=== PATIENT | male | born 1995 | race Caucasian/White ===

== ENCOUNTER 2017-05-14 00:31 | Emergency (ER) | payer BC ==
[~2017-05-14] VITALS: Ht 170.2 cm; Wt 75.2 kg
[2017-05-14 00:33] VITALS: Ht 170.2 cm; Wt 75.2 kg
--- NOTE | 2017-05-14 01:53 | ERD ---
ER Documentation Chief Complaint Chief Complaint chest pain x 4 days HPI 22-year-old male presents emergency department for reproducing chest pain for 4 days. Stated that his pain radiates to his left arm. He also added that this chest pain and left arm pain started after he got a flu shot to his left upper extremity last Tuesday. He also added that his chest pain is much worse after eating. Also complains of sinus headache. Denies that this is the worst headache of his life, dizziness, blurry vision, neck pain, throat pain, difficulty swallowing, sweating, clammy skin, abdominal pain, nausea, vomiting, constipation, diarrhea, urinary symptoms, loss of bowel bladder control, changes in bowel bladder habits, trauma, injury, falls, recent exposure to any illness, recent long travel, difficulty breathing when lying flat, numbness or tingling sensation, fever, chills. No known drug allergies. Past medical history of asthma. No surgical history. Does not take any prescription medication at home. Social: Works at an office. Right-handed. Denies smoking, use of alcoholic beverages, use of illegal drugs. ROS All systems reviewed and are negative except as per history of present illness. Medications Home Meds Active Scripts Cyclobenzaprine Hcl* (Cyclobenzaprine Hcl*) 10 Mg Tablet, 10 MG PO Q12 Y for MUSCLE SPASMS, #20 TAB Prov:CRISMELCHOREVELINANII F 05/14/17 Famotidine* (Pepcid*) 20 Mg Tablet, 20 MG PO DAILY for 30 Days, TAB Prov:PASILABANEVELINAAR F 05/14/17 Acetaminophen* (Tylophen*) 500 Mg Capsule, 1 CAP PO Q6H Y for PAIN AND OR ELEVATED TEMP, #20 CAP Prov:PASILABANEVELINAAR F 05/14/17 Allergies Allergies: Coded Allergies: No Known Allergy (Unverified , 05/14/17) PMhx/Soc Medical and Surgical Hx: pt denies Medical Hx, pt denies Surgical Hx Hx Alcohol Use: Yes Hx Substance Use: No Hx Tobacco Use: No Smoking Status: Never smoker Physical Exam Vitals Vital Signs Date Time Temp Pulse Resp B/P Pulse Ox O2 Delivery O2 Flow Rate FiO2 05/14/17 00:33 98.6 69 20 115/77 98 Physical Exam Const: [] Head: Atraumatic Eyes: Normal Conjunctiva ENT: Normal External Ears, Nose and Mouth. Neck: Full range of motion..~ No meningismus. Resp: Clear to auscultation bilaterally. Respirations even and unlabored. No crepitus. Lung sounds are clear to auscultation. Cardio: Regular rate and rhythm, no murmurs. Reproducing chest pain and left arm pain during range of motion of the left shoulder and T-spine/L-spine. Abd: Soft, non tender, non distended. Normal bowel sounds. There is no right upper/right lower/epigastric/left upper/left lower abdominal tenderness and likely palpation. Negative on Rovsing's sign. Negative Mullan sign. Negative on psoas sign. Able to jump 10 times without developing abdominal pain. No CVA tenderness. Ambulatory with steady gait and without difficulty and without abdominal pain. Skin: No petechiae or rashes. No vesicular lesions to chest area. No skin tenting. No signs of dehydration. Skin appears normal. Back: No midline or flank tenderness Ext: No cyanosis, or edema. No deformity or abnormality on extremities. Neur: Awake and alert Psych: Normal Mood and Affect Procedures/MDM 22-year-old male presents emergency department for reproducing chest pain for 4 days. Stated that his pain radiates to his left arm. He also added that this chest pain and left arm pain started after he got a flu shot to his left upper extremity last Tuesday. He also added that his chest pain is much worse after eating. Also complains of sinus headache. Denies that this is the worst headache of his life, dizziness, blurry vision, neck pain, throat pain, difficulty swallowing, sweating, clammy skin, abdominal pain, nausea, vomiting, constipation, diarrhea, urinary symptoms, loss of bowel bladder control, changes in bowel bladder habits, trauma, injury, falls, recent exposure to any illness, recent long travel, difficulty breathing when lying flat, numbness or tingling sensation, fever, chills. No known drug allergies. Past medical history of asthma. No surgical history. Does not take any prescription medication at home. Social: Works at an office. Right-handed. Denies smoking, use of alcoholic beverages, use of illegal drugs. Physical exam: Reproducing chest pain and left arm pain during range of motion of the left shoulder and T-spine/L-spine. No deformity or abnormality on extremities. Respirations even and unlabored. No crepitus. Lung sounds are clear to auscultation. Regular rate and rhythm of the heart. Skin: No vesicular lesions to chest area. Active bowel sounds. There is no right upper/ right lower/epigastric/left upper/left lower abdominal tenderness and likely palpation. Negative on Rovsing's sign. Negative Mullan sign. Negative on psoas sign. Able to jump 10 times without developing abdominal pain. No CVA tenderness. Ambulatory with steady gait and without difficulty and without abdominal pain. No neurological deficits. No neurovascular deficits. No skin tenting. No signs of dehydration. Skin appears normal. Disease process was explained to the patient. Patient and family member verbalized understanding and agreed with the diagnostic test, treatment, plan of care, follow-up care. EKG: Normal sinus rhythm with a ventricular rate of 64 bpm. No STEMI. No signs of ischemia. Read by supervising emergency room physician, Dr. Jovon Gagnon. Reevaluation: Denies headache, dizziness, blurred vision, neck pain, shoulder pain, chest pain. Lung sounds are clear to auscultation. There is no right upper/right lower/epigastric/left upper/left lower abdominal tenderness and likely palpation. Negative on Rovsing's sign. Negative Andriy sign. Negative on psoas sign. Able to jump 10 times without developing abdominal pain. No CVA tenderness. Ambulatory with steady gait and without difficulty and without abdominal pain. No neurological deficits. No neurovascular deficits. No skin tenting. No signs of dehydration. Skin appears normal. Differential diagnosis: Acute myocardial infarction versus acute coronary syndrome versus costochondritis versus chest wall pain versus pneumonia versus bronchitis versus musculoskeletal spasms versus viral syndrome Final diagnosis: Musculoskeletal spasm, gastritis, costochondritis, viral syndrome Prescription: Flexeril. Pepcid. Tylenol. Follow-up with PCP in the next 24-48 hours. Come back again in the emergency department for any new symptoms or any worsening of symptoms. All questions and concerns are answered. Patient and family member verbalized understanding and agreed with the plan of care. Hemodynamically stable on discharge. Departure Diagnosis: Primary Impression: Costochondritis Additional Impressions: Gastritis Muscle spasm Viral syndrome Condition: Stable Additional Instructions: Follow-up with PCP in the next 24-48 hours. Come back again in the emergency department for any new symptoms or any worsening of symptoms. All questions and concerns are answered. Patient and family member verbalized understanding and agreed with the plan of care. JESSICA LEWIS May 14, 2017 01:53
[2017-05-14] MEDS ORDERED: ACET500C5 PO (01:54)
[2017-05-14] MEDS ORDERED: CYCL-319 PO (01:55)
[2017-05-14] MEDS ORDERED: FAMO-96 PO (01:55)
== END 2017-05-14 02:34 | disposition home or self-care (01) ==
LOC: FTE 00:31
DX: M94.0 Chondrocostal junction syndrome [Tietze] (principal); K29.70 Gastritis, unspecified, without bleeding; M62.838 Other muscle spasm; B34.9 Viral infection, unspecified; J45.909 Unspecified asthma, uncomplicated
CPT/HCPCS: 93005; 99283

== ENCOUNTER 2018-12-29 08:48 | Emergency (ER) | payer BC ==
[~2018-12-29] VITALS: Ht 167.6 cm; Wt 80.0 kg
[~2018-12-29 08:48] MED LIST: ACET500C5 PO; CYCL10TA7 PO; FAMO-96 PO
[2018-12-29 08:51] VITALS: BP 122/80; PULSE 82; RESP 18; Ht 167.6 cm; Wt 80.0 kg
[2018-12-29] MEDS ORDERED: LIDOCAINE 1%/EPI (MDV) 50 ML INJ INJ ONE (09:30)
[2018-12-29] MEDS ORDERED: LIDOCAINE 1%/EPI 30 ML INJ INJ ONE (09:30)
[2018-12-29] MEDS ORDERED: CEPH-443 PO (09:53)
[2018-12-29] MEDS ORDERED: SULF1TAB31 PO (09:53)
--- NOTE | 2018-12-29 09:56 | ERD ---
ER Documentation Chief Complaint Chief Complaint pilonidal abcess x 4 days , fever yesterday HPI 23-year-old male who presents with an area of redness and swelling to his lower back just above his buttocks that is had for about 4 days. He also states that intermittent fevers. He noticed some pus from it yesterday as well as bleeding. It is painful when he sits in the area is getting larger and more swollen. ROS All systems reviewed and are negative except as per history of present illness. Medications Home Meds Active Scripts Cephalexin* (Keflex*) 500 Mg Capsule, 500 MG PO QID for 7 Days, CAP Prov:NURY WITT PA-C 12/29/18 Sulfamethoxazole/Trimethoprim* (Bactrim Ds* Tablet) 1 Each Tablet, 1 TAB PO BID, #14 TAB Prov:NURY WITT PA-C 12/29/18 Cyclobenzaprine Hcl* (Cyclobenzaprine Hcl*) 10 Mg Tablet, 10 MG PO Q12 PRN for MUSCLE SPASMS, #20 TAB Prov:JESSICA LEWIS 05/14/17 Famotidine* (Pepcid*) 20 Mg Tablet, 20 MG PO DAILY for 30 Days, TAB Prov:DEBBIEEVELINANII F 05/14/17 Acetaminophen* (Tylophen*) 500 Mg Capsule, 1 CAP PO Q6H PRN for PAIN AND OR ELEVATED TEMP, #20 CAP Prov:CRISILABANEVELINAAR F 05/14/17 Allergies Allergies: Coded Allergies: No Known Allergy (Unverified , 05/14/17) PMhx/Soc Hx Alcohol Use: Yes Hx Substance Use: No Hx Tobacco Use: No FmHx Family History: No diabetes Physical Exam Vitals Vital Signs Date Temp Pulse Resp B/P (MAP) Pulse Ox O2 O2 Flow FiO2 Time Delivery Rate 12/29/18 98.1 82 18 122/80 97 08:51 (94) Physical Exam Const: No acute distress Head: Atraumatic Eyes: Normal Conjunctiva Resp: Clear to auscultation bilaterally Cardio: Regular rate and rhythm, no murmurs Abd: Soft, non tender, non distended. Skin: Pilonidal cyst approximately 3 cm in length by 1.5 cm in diameter, tender to palpation Results 24 hrs Current Medications Medications Dose Sig/Heather Start Time Status Last (Trade) Ordered Route PRN Stop Time Admin Dose Reason Admin Lidocaine/ 20 ml ONCE ONCE 12/29/18 DC Epinephrine INJ 09:30 12/29/18 (Xylocaine 09:30 1%/ Epi (Mdv)) Lidocaine/ VOLUME PER ONCE ONCE 12/29/18 DC Epinephrine MD FOR INJ 09:30 12/29/18 (Xylocaine PROCEDURE 09:31 1%/ Epi (Pf)) Procedures/MDM Abscess Incision and Drainage with irrigation by me: Location: Pilonidal cyst Anesthesia: Local 1% Lidocaine Technique: Irrigated. Disrupted loculations w/ instrumentation Packin.25 packing Complications: Neurovascularly intact post procedure 48 hour wound check. Scar minimization instructions given. Prescription for Bactrim and Keflex given. Patient counseled regarding my diagnostic impression and care plan. Prior to discharge all questions answered. Pt agrees with treatment plan and understands strict return precautions. Pt is instructed to follow up with primary care provider within 24-48 hours. Precautionary instructions provided including instructions to return to the ER if not improving or for any worsening or changing symptoms or concerns. Departure Diagnosis: Primary Impression: Pilonidal cyst Condition: Stable Patient Instructions: Pilonidal Cyst, Infected (Incision And Drainage) Additional Instructions: Call your primary care doctor TOMORROW for an appointment during the next 1-2 days.See the doctor sooner or return here if your condition worsens before your appointment time. NURY WITT PA-C Dec 29, 2018 09:56
== END 2018-12-29 10:12 | disposition home or self-care (01) ==
LOC: FTE 08:48
DX: L05.01 Pilonidal cyst with abscess (principal)